=== PATIENT | female | born 1955 | race Caucasian/White ===

== ENCOUNTER 2023-01-25 12:25 | Observation (INO) | payer MEDICARE, OTHER ==
[2023-01-25] VITALS (16 sets, daily range): BP systolic 109–138; BP diastolic 56–80
[~2023-01-25] VITALS: Ht 167.6 cm; Wt 80.0 kg
[~2023-01-25 12:25] MED LIST: ATORVASTATIN CA40 MG PO; ELIQUIS5 MG PO; ESTRADIOL1 MG PO
[2023-01-25 13:01] LABS: BASO% 0.5 % (0-3); EOS% 2.2 % (0-8); HEMATOCRIT 40.1 % (37.0-47.0); HEMOGLOBIN 13.3 g/dl (12.0-16.0); LYMPH% 23.7 % (15-41); MEAN CELL VOLUME 88.3 fL CALC (80.0-100.0); MEAN CORPUSCULAR HGB 29.3 pG CALC (26.0-32.0); MEAN CORPUSCULAR HGB CONC 33.2 g/dL CAL (32.0-36.0); MONO% 6.6 % (2-13); NEUT# 4.28 thou/uL (2.00-7.15); RED BLOOD COUNT 4.54 mill/uL (4.20-5.60); RED CELL DISTRI WIDTH 12.2 % (11.5-15.5)
[2023-01-25 13:16] LABS: ALBUMIN 4.4 g/dL (3.2-5.0); ALKALINE PHOSPHATASE 84 u/l (38-126); ANION GAP 16 (6-22 (CALC)); BILIRUBIN, TOTAL 0.9 mg/dL (0.02-1.3); BUN 11 mg/dL (8-23); BUN/CREATININE RATIO 15 (12-20 (CALC)); CALCULATED LDLCHOLESTEROL 53 mg/dL (62-129 (CALC)); CARBON DIOXIDE 24 mmol/l (22-30); CHLORIDE 104 mmol/l (95-108); CHOLESTEROL HDL RATIO 2.6 (<4.4 (CALC)); CREATININE 0.8 mg/dL (0.5-1.0); GFR FOR AFR.AMER. > 60 ML/MIN (>=60 (CALC)); GFR OTHER RACES > 60 ML/MIN (>=60 (CALC)); HDL CHOLESTEROL 64 mg/dL (39.0-59.0); INTERNATIONAL NORMALIZED RATIO 1.1 RATIO (0.7-1.3); POTASSIUM 4.5 mmol/l (3.5-5.1); PROTHROMBIN TIME 10.3 SECONDS (9.0-12.5); SGOT/AST 33 u/l (9-36); SODIUM 139 mmol/l (137-146); TOTAL CHOLESTEROL 166 mg/dl (0-199); TOTAL PROTEIN 7.6 g/dL (6.3-8.2); TOTAL TRIGLYCERIDES 246 mg/dl (0-149); VLDL CHOLESTROL 49 mg/dl (1-41 (CALC))
[2023-01-25 18:16] LABS: URINE BILIRUBIN - DIPSTICK Negative (NEGATIVE); URINE BLOOD DIPSTICK Negative (NEGATIVE); URINE COLOR Yellow; URINE GLUCOSE - DIPSTICK Negative (NEGATIVE); URINE KETONE Negative (NEGATIVE); URINE LEUK ESTERASE Negative (NEGATIVE); URINE NITRITE - DIPSTICK Negative (Negative); URINE PROTEIN - DIPSTICK Negative (NEG-TRACE); URINE SPECIFIC GRAVITY 1.015; URINE UROBILINOGEN - DIPSTICK 0.2 E.U./dL (0.2)
[2023-01-26 04:03] VITALS: BP 102/57
[2023-01-26 05:44] LABS: HEMATOCRIT 38.1 % (37.0-47.0); HEMOGLOBIN 12.6 g/dl (12.0-16.0); MEAN CORPUSCULAR HGB 29.4 pG CALC (26.0-32.0); MEAN CORPUSCULAR HGB CONC 33.1 g/dL CAL (32.0-36.0); RED BLOOD COUNT 4.28 mill/uL (4.20-5.60); RED CELL DISTRI WIDTH 12.3 % (11.5-15.5)
[2023-01-26 05:59] LABS: ANION GAP 10 (6-22 (CALC)); BUN 13 mg/dL (8-23); BUN/CREATININE RATIO 15 (12-20 (CALC)); CARBON DIOXIDE 27 mmol/l (22-30); CHLORIDE 104 mmol/l (95-108); CREATININE 0.9 mg/dL (0.5-1.0); GFR FOR AFR.AMER. > 60 ML/MIN (>=60 (CALC)); GFR OTHER RACES > 60 ML/MIN (>=60 (CALC)); MAGNESIUM 2.1 mg/dL (1.6-2.3); POTASSIUM 4.3 mmol/l (3.5-5.1); SODIUM 137 mmol/l (137-146)
[2023-01-26 06:22] VITALS: BP 108/56
[2023-01-26 10:55] VITALS: BP 107/66
[2023-01-26] MEDS ORDERED: MECLIZINE 2525 MG PO (13:57)
== END 2023-01-26 14:36 | disposition home or self-care (01) ==
LOC: ED 12:25 → ED-I 15:35 → ED 15:53 → MS2 15:54
PROVIDERS: Emergency Medicine; ADMIT Student in an Organized Health Care Education/Training Program; ATTEND Student in an Organized Health Care Education/Training Program
DX: R42 Dizziness and giddiness (principal); H53.8 Other visual disturbances; I10 Essential (primary) hypertension; I48.91 Unspecified atrial fibrillation; E78.00 Pure hypercholesterolemia, unspecified; Z79.01 Long term (current) use of anticoagulants
CPT/HCPCS: Q9967

== ENCOUNTER 2023-05-24 15:51 | Observation (INO) | payer MEDICARE, OTHER ==
[~2023-05-24] VITALS: Ht 167.6 cm; Wt 79.6 kg
[2023-05-24] VITALS (14 sets, daily range): BP systolic 110–148; BP diastolic 60–81
[~2023-05-24 15:51] MED LIST changes: +MECLIZINE 2525 MG PO
[2023-05-24] MEDS ORDERED: PLAVIX75 MG PO (16:24)
[2023-05-24] MEDS ORDERED: BAYER ASPIRIN E81 MG PO (16:24)
[2023-05-24 16:49] LABS: BASO% 0.4 % (0-3); EOS% 2.5 % (0-8); HEMATOCRIT 36.9 % (37.0-47.0); HEMOGLOBIN 12.1 g/dl (12.0-16.0); MEAN CORPUSCULAR HGB 28.5 pG CALC (26.0-32.0); MEAN CORPUSCULAR HGB CONC 32.8 g/dL CAL (32.0-36.0); MONO% 9.5 % (2-13); NEUT# 2.65 thou/uL (2.00-7.15); NEUT% 54.6 % (42-76); RED BLOOD COUNT 4.24 mill/uL (4.20-5.60); RED CELL DISTRI WIDTH 12.1 % (11.5-15.5)
[2023-05-24 17:01] LABS: ALKALINE PHOSPHATASE 102 u/l (38-126); ANION GAP 13 (6-22 (CALC)); BILIRUBIN, TOTAL 0.5 mg/dL (0.02-1.3); BUN 11 mg/dL (8-23); BUN/CREATININE RATIO 16 (12-20 (CALC)); CARBON DIOXIDE 25 mmol/l (22-30); CHLORIDE 106 mmol/l (95-108); CREATININE 0.7 mg/dL (0.5-1.0); GFR FOR AFR.AMER. > 60 ML/MIN (>=60 (CALC)); GFR OTHER RACES > 60 ML/MIN (>=60 (CALC)); POTASSIUM 3.9 mmol/l (3.5-5.1); SGOT/AST 27 u/l (9-36); SODIUM 139 mmol/l (137-146); TOTAL PROTEIN 6.7 g/dL (6.3-8.2)
[2023-05-24 20:14] LABS: URINE BILIRUBIN - DIPSTICK Negative (NEGATIVE); URINE BLOOD DIPSTICK Negative (NEGATIVE); URINE CLARITY Slightly Cloudy; URINE GLUCOSE - DIPSTICK Negative (NEGATIVE); URINE KETONE Negative (NEGATIVE); URINE LEUK ESTERASE Small (Negative); URINE NITRITE - DIPSTICK Negative (Negative); URINE PH 6.5 (4.5-8.0); URINE PROTEIN - DIPSTICK Negative (NEG-TRACE); URINE SPECIFIC GRAVITY <=1.005; URINE UROBILINOGEN - DIPSTICK 0.2 E.U./dL (0.2)
[2023-05-24 20:15] LABS: URINE COLOR Yellow
[2023-05-24 20:18] LABS: URINE SQUAMOUS EPITHELIAL CELL MANY EPI/hpf (0-FEW); URINE WBC 0-2 WBC/hpf (0-5)
[2023-05-24 20:19] LABS: URINE BACTERIA RARE hpf
[2023-05-25 05:21] VITALS: BP 100/48
[2023-05-25 07:15] LABS: HEMOGLOBIN 12.2 g/dl (12.0-16.0); MEAN CELL VOLUME 87.4 fL CALC (80.0-100.0); MEAN CORPUSCULAR HGB 29.6 pG CALC (26.0-32.0); MEAN CORPUSCULAR HGB CONC 33.9 g/dL CAL (32.0-36.0); RED BLOOD COUNT 4.12 mill/uL (4.20-5.60); RED CELL DISTRI WIDTH 12.3 % (11.5-15.5)
[2023-05-25 07:36] VITALS: BP 96/53
[2023-05-25 07:40] LABS: ALBUMIN 3.5 g/dL (3.2-5.0); ALKALINE PHOSPHATASE 94 u/l (38-126); ANION GAP 12 (6-22 (CALC)); BILIRUBIN, TOTAL 0.4 mg/dL (0.02-1.3); BUN 14 mg/dL (8-23); BUN/CREATININE RATIO 20 (12-20 (CALC)); CARBON DIOXIDE 23 mmol/l (22-30); CHLORIDE 109 mmol/l (95-108); CREATININE 0.7 mg/dL (0.5-1.0); GFR FOR AFR.AMER. > 60 ML/MIN (>=60 (CALC)); GFR OTHER RACES > 60 ML/MIN (>=60 (CALC)); POTASSIUM 4.2 mmol/l (3.5-5.1); SGOT/AST 26 u/l (9-36); SODIUM 139 mmol/l (137-146)
[2023-05-25 11:11] VITALS: BP 114/58
[2023-05-25] MEDS ORDERED: TOPROL XL25 M1 PO (15:41)
[2023-05-25 15:55] VITALS: BP 114/58
== END 2023-05-25 16:12 | disposition home or self-care (01) ==
LOC: ED 15:51 → ED-I 17:28 → ED 17:43 → MS2 17:45
PROVIDERS: Family Medicine; ADMIT Student in an Organized Health Care Education/Training Program; ATTEND Student in an Organized Health Care Education/Training Program
DX: R07.9 Chest pain, unspecified (principal); R00.2 Palpitations; I10 Essential (primary) hypertension; I48.91 Unspecified atrial fibrillation; Z95.818 Presence of other cardiac implants and grafts; Z79.82 Long term (current) use of aspirin; Z79.02 Long term (current) use of antithrombotics/antiplatelets

== ENCOUNTER 2024-01-13 06:16 | Day surgery (SDC) | payer MEDICARE, OTHER ==
[~2024-01-13] VITALS: Ht 167.6 cm; Wt 72.6 kg
[~2024-01-13 06:16] MED LIST changes: +BAYER ASPIRIN E81 MG PO; +D32000 UNI1 PO; +PLAVIX75 MG PO; +TOPROL XL25 M1 PO
[2024-01-13] MEDS ORDERED: FAMOTIDINE 10MG/ML 2ML SDV IV ONE (06:28)
[2024-01-13] MEDS ORDERED: LACTATED RINGER'S 1,000 ML IV ONE (06:28)
[2024-01-13] MEDS ORDERED: SIMETHICONE 20 MG/0.3 ML PO ONE (06:37)
[2024-01-13] MEDS ORDERED: ONDANSETRON HCl 4 MG/2 ML SDV ONE (07:17)
[2024-01-13 07:37] VITALS: BP 123/76
[2024-01-13] MEDS ORDERED: LIDOCAINE HCL 2% 2ML SDV IV ONE (11:35)
[2024-01-13] MEDS ORDERED: PROPOFOL 200 MG/20 ML VIAL IV ONE (11:35)
== END 2024-01-13 07:45 | disposition home or self-care (01) ==
LOC: ENDO 06:16
PROVIDERS: ATTEND Internal Medicine Gastroenterology
PROC: 0DJD8ZZ Inspection of Lower Intestinal Tract, Via Natural or Artificial Opening Endoscopic (ICD-10-PCS; principal; 2024-01-13)
DX: Z12.11 Encounter for screening for malignant neoplasm of colon (principal); K64.8 Other hemorrhoids; I48.91 Unspecified atrial fibrillation; Z95.818 Presence of other cardiac implants and grafts

== ENCOUNTER 2024-02-29 09:08 | Observation (INO) | payer MEDICARE, OTHER ==
[2024-02-29] VITALS (22 sets, daily range): BP systolic 96–144; BP diastolic 45–90
[~2024-02-29] VITALS: Ht 167.6 cm; Wt 74.8 kg
[2024-02-29] MEDS ORDERED: ASPIRIN 81 MG/TAB PO ONE (09:25)
[2024-02-29 09:45] LABS: BASO% 0.6 % (0-3); EOS% 2.4 % (0-8); HEMATOCRIT 39.7 % (37.0-47.0); HEMOGLOBIN 13.2 g/dl (12.0-16.0); IMMATURE GRANULOCYTES 0.2 % (0.0-5.0); LYMPH% 31.6 % (15-41); MEAN CELL VOLUME 88.2 fL CALC (80.0-100.0); MEAN CORPUSCULAR HGB 29.3 pG CALC (26.0-32.0); MEAN CORPUSCULAR HGB CONC 33.2 g/dL CAL (32.0-36.0); MONO% 7.3 % (2-13); NEUT# 2.85 thou/uL (2.00-7.15); NEUT% 57.9 % (42-76); RED BLOOD COUNT 4.5 mill/uL (4.20-5.60); RED CELL DISTRI WIDTH 12.2 % (11.5-15.5)
[2024-02-29 09:59] LABS: ALBUMIN 4.3 g/dL (3.2-5.0); BILIRUBIN, TOTAL 0.9 mg/dL (0.02-1.3); CREATININE 0.8 mg/dL (0.5-1.0); POTASSIUM 4.4 mmol/l (3.5-5.1); TOTAL PROTEIN 7.5 g/dL (6.3-8.2)
[2024-02-29] MEDS ORDERED: ACETAMINOPHEN 325 MG/TAB PO PRN (14:40)
[2024-02-29] MEDS ORDERED: Zaleplon 5 MG/CAP PO PRN (14:40)
[2024-02-29] MEDS ORDERED: MAGNESIUM HYDROXIDE 30 ML UDC PO PRN (14:40)
[2024-02-29] MEDS ORDERED: ENOXAPARIN SODIUM 40 MG/0.4 ML SYR SC SCH (21:00)
[2024-02-29] MEDS ORDERED: ATORVASTATIN CALCIUM 40 MG/TAB PO SCH (21:00)
[2024-03-01 04:11] VITALS: BP 94/46
[2024-03-01 05:57] LABS: CHOLESTEROL HDL RATIO 2.4 (<4.4 (CALC)); MAGNESIUM 2.1 mg/dL (1.6-2.3)
[2024-03-01 07:33] VITALS: BP 92/44
[2024-03-01] MEDS ORDERED: ASPIRIN EC 81 MG/TAB PO SCH (09:00)
[2024-03-01] MEDS ORDERED: METOPROLOL SUCCINATE 25 MG/TAB-TOPROL XL PO SCH (09:00)
[2024-03-01 09:28] VITALS: BP 102/55
[2024-03-01 09:30] VITALS: BP 102/55
== END 2024-03-01 11:00 | disposition home or self-care (01) ==
LOC: ED 09:08 → ED-I 10:41 → ED 10:41 → MS2 12:07
PROVIDERS: Family Medicine; ADMIT Internal Medicine; ATTEND Internal Medicine
DX: R07.9 Chest pain, unspecified (principal); I10 Essential (primary) hypertension; I48.91 Unspecified atrial fibrillation; E78.00 Pure hypercholesterolemia, unspecified; Z90.710 Acquired absence of both cervix and uterus; Z95.818 Presence of other cardiac implants and grafts
CPT/HCPCS: G0378; J1650